=== PATIENT | female | born 1960 | race Caucasian/White ===

== ENCOUNTER 2018-05-21 12:13 | Day surgery (SDC) | payer OTHER ==
[~2018-05-21 12:13] MED LIST: PROPOFOL 200 MG INJ
[2018-05-21] MEDS ORDERED: PROPOFOL 40 ML (15:42)
[2018-05-21] MEDS ORDERED: LIDOCAINE 2% (SDV) 5 ML INJ (15:43)
[2018-05-21] MEDS ORDERED: ONDANSETRON 4 MG INJ IV (16:00)
[2018-05-21] MEDS ORDERED: LABETALOL HCL 20MG INJ IV (16:00)
[2018-05-21] MEDS ORDERED: EPHEDrine SULFATE 50 MG/5 ML SYG IV (16:00)
[2018-05-21] MEDS ORDERED: hydrALAzine 20 MG INJ IV (16:00)
[2018-05-21] MEDS ORDERED: FENTAnyl 50 MCG/ML VIAL IV (16:00)
== END 2018-05-21 16:25 | disposition home or self-care (01) ==
LOC: GIL 12:13
DX: K29.50 Unspecified chronic gastritis without bleeding (principal)
CPT/HCPCS: 43239; 88305; 88312